=== PATIENT | female | born 1945 ===

== ENCOUNTER 2025-07-01 07:56 | Outpatient (CLI) | payer OTHER ==
[~2025-07-01] VITALS: Ht 167.6 cm; Wt 99.8 kg
[2025-07-01 08:38] VITALS: BP 158/81
[2025-07-01 10:18] LABS: BASO % 0.5 % (0.1-1.2); EOS # 0.08 (0.04-0.54); EOS % 1.4 % (0.7-7.0); LYMPH # 1.74 (1.18-3.74); LYMPH % 29.8 % (19.3-53.1); MEAN PLATELET VOLUME 11.30 fl (9.4-12.4); MONO # 0.33 (0.24-0.82); MONO % 5.7 % (4.7-12.5); NEUT # 3.65 (1.56-6.13); NEUT % 62.4 % (34.0-71.1); RED CELL DISTRIBUTION WIDTH 13.9 % (11.6-14.4)
[2025-07-01 10:22] LABS: URINE APPEARANCE Clear; URINE BILIRRUBIN Negative (NEGATIVE); URINE COLOR Yellow; URINE GLUCOSE Negative (NEGATIVE); URINE KETONE Negative (NEGATIVE); URINE LEUKOCYTE Negative; URINE NITRATE Negative; URINE PROTEIN Negative (NEGATIVE); URINE UROBILINOGEN 0.2 E.U./dl
[2025-07-01 10:25] LABS: URINE BACTERIA 46.7 uL (0.0-1933); URINE EPITHELIAL CELLS 6.2 uL (0.0-38.8); URINE RBC 27.8 uL (0.0-20.8)
[2025-07-01 10:27] LABS: URINE CAST 0.00 uL (0.0-1.40); URINE WBC 0.6 uL (0.0-23.2)
[2025-07-01 10:28] LABS: URINE BLOOD TRACE
[2025-07-01 10:43] LABS: INR 1.00
[2025-07-01 10:54] LABS: COL EPI 147 SECONDS (82-175)
[2025-07-01 11:44] LABS: ALT/SGPT 13.0 U/L (12-78); AST/SGOT 15.0 U/L (15-37); BILIRUBIN TOTAL 0.47 mg/dL (0.3-1.2); BUN CREA RATIO 19.0 (7.0-25.0); CREATININE SERUM 0.68 mg/dL (0.55-1.02); GFR 83.47; GLOBULINA 3.7 G/DL (2.4-3.5); GLUCOSE FASTING 87.0 mg/dL (65-100); OSMOLALITY SERUM 281.0 MOSM/KG (275-295)
[2025-07-02] MEDS ORDERED: COZAAR50 MG PO (13:46)
[2025-07-02] MEDS ORDERED: TOPROL XL25 M1 PO (13:46)
[2025-07-02] MEDS ORDERED: ZOCOR40 MG PO (13:47)
== END 2025-07-01 11:28 | disposition home or self-care (01) ==
LOC: EDBD 07:56 → LAB 07:56
PROVIDERS: ATTEND Orthopaedic Surgery
DX: D64.9 Anemia, unspecified (principal); Z76.89 Persons encountering health services in other specified circumstances; E88.9 Metabolic disorder, unspecified; D68.8 Other specified coagulation defects; N39.0 Urinary tract infection, site not specified; Z22.322 Carrier or suspected carrier of Methicillin resistant Staphylococcus aureus; E11.8 Type 2 diabetes mellitus with unspecified complications; I10 Essential (primary) hypertension

== ENCOUNTER 2025-07-02 13:42 | Outpatient (CLI) | payer OTHER ==
[2025-07-02] MEDS ORDERED: TOPROL XL25 M1 PO (13:46)
[2025-07-02] MEDS ORDERED: COZAAR50 MG PO (13:46)
[2025-07-02] MEDS ORDERED: ZOCOR40 MG PO (13:47)
== END 2025-07-02 13:48 | disposition home or self-care (01) ==
LOC: RAD 13:42
PROVIDERS: ATTEND Orthopaedic Surgery
DX: M21.42 Flat foot [pes planus] (acquired), left foot (principal); M66.872 Spontaneous rupture of other tendons, left ankle and foot

== ENCOUNTER 2025-07-08 21:32 | Inpatient (IN) | payer OTHER ==
[2025-07-02 13:50] VITALS: BP 158/81
[~2025-07-08] VITALS: Ht 167.6 cm; Wt 90.7 kg
[~2025-07-08 21:32] MED LIST: ACETAMINOPHEN 325 MG TABLET PO SCH; CEFAZOLIN SODIUM 1,000 MG VIAL IV ONE; CEFAZOLIN SODIUM 1,000 MG VIAL IV SCH; CELECOXIB 200 MG CAPSULE PO SCH; COZAAR50 MG PO; ONDANSETRON 4 MG TAB.RAPDIS PO PRN; ONDANSETRON HCL 2 MG/ML VIAL IV PRN; PANTOPRAZOLE SODIUM 40 MG TABLET.DR PO SCH; PROMETHAZINE HCL 50 MG/ML AMPUL IM PRN; SODIUM CHLORIDE 0.45 % 1,000 ML IV SCH; TOPROL XL25 M1 PO; TRAMADOL HCL 50 MG TABLET PO PRN; ZOCOR40 MG PO
[2025-07-08 21:52] VITALS: BP 115/56; O2SAT 96
[2025-07-09] VITALS: BP 145/74; O2SAT 95
[2025-07-09 08:23] VITALS: BP 112/76; O2SAT 97
[2025-07-09] MEDS ORDERED: RIVAROXABAN 10 MG TAB PO SCH (09:00)
[2025-07-09] MEDS ORDERED: ENALAPRILAT DIHYDRATE 1.25 MG/ML VIAL IV PRN (13:30)
[2025-07-09] MEDS ORDERED: LOSARTAN/HYDROCHLOROTHIAZIDE 1 UDTAB TABLET PO NR (13:45)
[2025-07-09] MEDS ORDERED: METOPROLOL SUCCINATE 25 MG TAB.SR.24H PO NR (13:45)
[2025-07-09 13:55] VITALS: BP 150/79
[2025-07-09 16:20] VITALS: BP 155/68; O2SAT 95
[2025-07-09] MEDS ORDERED: SIMVASTATIN 20 MG TABLET PO SCH (17:00)
[2025-07-10] MEDS ORDERED: LOSARTAN/HYDROCHLOROTHIAZIDE 1 UDTAB TABLET PO SCH (09:00)
[2025-07-10] MEDS ORDERED: SENNA/DOCUSATE SODIUM 1 TAB TABLET PO SCH (09:00)
[2025-07-10] MEDS ORDERED: METOPROLOL SUCCINATE 25 MG TAB.SR.24H PO SCH (09:00)
== END 2025-07-09 17:23 | disposition home or self-care (01) | DRG 505 ==
LOC: CIR.AMB 21:32 → SURG 21:43
PROVIDERS: ADMIT Orthopaedic Surgery; ATTEND Orthopaedic Surgery
PROC: 0QUM0JZ Supplement Left Tarsal with Synthetic Substitute, Open Approach (ICD-10-PCS; 2025-07-08)
PROC: 0KX Muscles, Transfer (ICD-10-PCS; 2025-07-08)
PROC: 0LBW0ZZ Excision of Left Foot Tendon, Open Approach (ICD-10-PCS; 2025-07-08)
PROC: 0LXW0ZZ Transfer Left Foot Tendon, Open Approach (ICD-10-PCS; 2025-07-08)
PROC: 0MQT0ZZ Repair Left Foot Bursa and Ligament, Open Approach (ICD-10-PCS; 2025-07-08)
PROC: 0QBM0ZZ Excision of Left Tarsal, Open Approach (ICD-10-PCS; principal; 2025-07-08 07:00)
DX: M25.872 Other specified joint disorders, left ankle and foot (principal); Q66.6 Other congenital valgus deformities of feet; M76.72 Peroneal tendinitis, left leg; M66.872 Spontaneous rupture of other tendons, left ankle and foot